=== PATIENT | female | born 1980 | race Caucasian/White ===

== ENCOUNTER 2017-03-08 08:01 | Emergency (ER) | payer OTHER ==
[~2017-03-08] VITALS: Ht 170.2 cm; Wt 80.7 kg
[~2017-03-08 08:01] MED LIST: ALPRAZOLAM0.5 MG PO; HYDROCODONE-AP1 EAC8 PO; LEVOTHYROXINE100 MCG PO; LEVOTHYROXINE25 MCG PO; LOSARTAN POTASS50 MG PO; PROMETHAZINE HC25 M1 PO
[2017-03-08 08:42] LABS: HEMATOCRIT 34.2 % (36.0-46.0); MCH 28.3 PG (29.0-34.0); MCV 85.7 FL (83-99); MEAN PLAT.VOLUME 9.6 uM^3 (9.5-12.4); PLATELET COUNT 273 K/uL (156-360); RBC DIS.WIDTH-CV 12.8 % (11.8-14.6); RBC DIS.WIDTH-SD 39.8 % (39-53); RED BLOOD COUNT 3.99 M/uL (3.80-5.20); WHITE BLOOD COUNT 8.8 K/uL (4.1-10.2)
[2017-03-08 08:51] LABS: CHLORIDE 105 mEq/L (99-109); POTASSIUM 4.6 mEq/L (3.7-5.4); SODIUM 139 mEq/L (136-147)
[2017-03-08 08:52] LABS: GLUCOSE 104 mg/dL (70-99)
[2017-03-08 08:54] LABS: ANION GAP 9 MEQ/L (2-14)
[2017-03-08 08:56] LABS: GFR ESTIMATE (CALCULATED) > 59 mL/min/
[2017-03-08 08:57] LABS: UREA NITROGEN (BUN) 11 mg/dL (9-23)
[2017-03-08 09:02] LABS: EOSINOPHIL COUNT 0.2 K/uL (0-0.3); IMMATURE GRANULOCYTE (%) 0.3 % (0.0-0.7); INSTRUMENT ABS NEUTROPHIL CT 6.3 K/uL; LYMPHOCYTE COUNT 1.7 K/uL (1.0-2.8); MONOCYTE (%) 7.2 % (3-12); MONOCYTE COUNT 0.6 K/uL (0-0.8); NEUTROPHIL (%) 70.7 % (45-76); NEUTROPHIL COUNT 6.3 K/uL (1.8-6.4)
[2017-03-08 09:05] LABS: QUANTITATIVE HCG < 4.0 MIU/ML
[2017-03-08 10:19] LABS: ADD MIUA? NO; BILIRUBIN NEGATIVE; BLOOD NEGATIVE; COLOR YELLOW ((YELLOW)); GLUCOSE (STRIP) NEGATIVE; KETONES NEGATIVE; LEUKOCYTES NEGATIVE; NITRITE NEGATIVE; PROTEIN (STRIP) NEGATIVE; SPECIFIC GRAVITY 1.011 (1.000-1.030); UCUL ADDED? NO; UROBILINOGEN 0.2 MG/DL (0.2-1.0)
[2017-03-08] MEDS ORDERED: ZOFRAN ODT8 MG PO (15:56)
[2017-03-08] MEDS ORDERED: FLOMAX0.4 MG PO (15:56)
[2017-03-08] MEDS ORDERED: PERCOCET 5/31 TABLET PO (15:56)
[2017-03-08 16:08] VITALS: BP 143/99
== END 2017-03-08 16:19 | disposition home or self-care (01) ==
LOC: EME 08:01
DX: N23 Unspecified renal colic (principal); N13.30 Unspecified hydronephrosis; Z87.442 Personal history of urinary calculi; I10 Essential (primary) hypertension; E03.9 Hypothyroidism, unspecified
CPT/HCPCS: 74000; 76770; 80048; 81003; 84702; 85025; 85027; 99281; 99283; J1885; J2270

== ENCOUNTER → 2017-03-12 | Outpatient (CLI) | payer OTHER ==
[~2017-03-12] MED LIST changes: +FLOMAX0.4 MG PO; +PERCOCET 5/31 TABLET PO; +ZOFRAN ODT8 MG PO
== END | disposition home or self-care (01) ==
LOC: CDC 10:59
DX: Z01.810 Encounter for preprocedural cardiovascular examination (principal)
CPT/HCPCS: 93000